=== PATIENT | female | born 1985 | race Caucasian/White ===

== ENCOUNTER → 2019-06-02 13:27 | Outpatient (CLI) | payer MEDICAID, SELFPAY ==
[2019-06-02 14:48] LABS: Basophils % 0.6 % (0.1-2.0); Eosinophils # 0.5 K/mm3 (0.0-0.4); Hematocrit 46.8 % (37.0-47.0); Hemoglobin 15.2 g/dL (12.2-16.2); Lymphocytes # 1.8 K/mm3 (0.7-4.5); Lymphocytes % 28.5 % (10-50); Mean Corpuscular HGB Conc 32.5 g/dL (31.8-35.4); Mean Corpuscular Hemoglobin 30.6 pg (27.0-31.2); Mean Corpuscular Volume 94.2 fl (81-99); Mean Platelet Volume 8.3 fl (7.4-10.4); Monocytes # 0.4 K/mm3 (0.1-1.0); Monocytes % 5.9 % (1.7-9.3); Neutrophils # 3.7 K/mm3 (1.8-7.8); Platelet Count 235 K/mm3 (142-424); Red Blood Count 4.97 M/mm3 (4.20-5.40); Red Cell Distribution Width 12.7 % (11.5-17.5); White Blood Count 6.5 K/mm3 (4.8-10.8)
[2019-06-02 15:19] LABS: Albumin Level 3.6 gm/dL (3.4-5.0); Albumin/Globulin Ratio 1.1 (1.1-1.8); Alkaline Phosphatase 52 U/L (46-116); Anion Gap 11.9 mEq/L (5-15); Aspartate Amino Transferase 12 U/L (15-37); Blood Urea Nitrogen 7 mg/dL (7-18); Calcium 8.7 mg/dL (8.5-10.1); Carbon Dioxide 27 mmol/L (21.0-32.0); Chloride 105 mmol/L (98-107); Chol/HDL Ratio 3.7 (1-3.5); Cholesterol 154 mg/dL (140-200); Creatinine,Serum 0.75 mg/dL (0.55-1.02); Estimated Glomerular Filt Rate 90 ml/min (>60); GFR (African American) 109 ML/MIN (>60); Globulin 3.2 gm/dl (1.3-3.2); Glucose 81 mg/dL (74-106); HDL Cholesterol 42 mg/dL (29-89); LDL Cholesterol 99 mg/dL (0-130); Potassium 3.9 mmoL/L (3.5-5.1); Sodium 140 mmol/L (136-145); T4 (Thyroxine) 10.7 ug/dl (4.7-13.3); Thyroid Stimulating Hormone 1.06 uIU/ml (0.358-3.740); Total Protein,Serum 6.8 gm/dL (6.4-8.2); Triglycerides 64 mg/dL (30-200); VLDL Cholesterol 13 mg/dL (0-40)
[2019-06-02 15:52] LABS: Alanine Aminotransferase 22 U/L (12-78); Bilirubin,Total 0.8 mg/dL (0.2-1.0)
[2019-06-03 07:09] LABS: Hep A Ab, IgM Negative (Negative); Hepatitis B Core Antibody IgM Negative (Negative); Hepatitis B Surface Antigen Negative (Negative)
[2019-06-04 16:29] LABS: Vitamin D 25 Hydroxy 33.7 ng/mL (30.0-100.0)
[2019-06-04 16:30] LABS: Hepatitis C Antibody <0.1 s/co ratio (0.0-0.9)
== END ==
PROVIDERS: Visit Provider Nurse Practitioner Family
DX: E04.9 Nontoxic goiter, unspecified (principal); R53.83 Other fatigue; Z11.59 Encounter for screening for other viral diseases; Z13.220 Encounter for screening for lipoid disorders
CPT/HCPCS: 80053; 80061; 80074; 82652; 84436; 84443; 85025

== ENCOUNTER → 2019-06-09 13:08 | Outpatient (CLI) | payer MEDICAID, SELFPAY ==
--- NOTE | 2019-06-09 13:10 | US_ITS ---
PROCEDURE: US THYROID CLINICAL INDICATION: enlarged thryoid COMPARISON: No exams were available for comparison FINDINGS: Right lobe: 4 x 1.3 x 1.4 cm Left lobe: 4.4 x 1.3 x 1.3 cm Isthmus: Unremarkable Additional findings: Homogeneous echogenicity. No discrete nodule IMPRESSION: Thyroid gland upper limits of normal. No nodules identified Dictated by: Isrrael Rolon MD 06/09/2019 17:46 Signed by: <Electronically signed by Isrrael Rolon MD in [facility]> 06/09/2019 17:46
== END ==
PROVIDERS: PCP Nurse Practitioner Family; Visit Provider Nurse Practitioner Family
DX: E04.9 Nontoxic goiter, unspecified (principal)
CPT/HCPCS: 76536

== ENCOUNTER → 2020-07-08 16:18 | Outpatient (CLI) | payer OTHER, SELFPAY ==
--- NOTE | 2020-07-08 16:26 | CT_ITS ---
PROCEDURE: CT ANKLE LT WO CON CLINICAL HISTORY: PREOP testing; evaluate fracture/ dislocation Fracture evaluation COMPARISON: No exams were available for comparison TECHNIQUE: Axial images obtained with sagittal and coronal reformats. All CT scans at the facility use one or more dose reduction, viz: automated exposure control, ma/kV adjustment per patient size (including targeted exams where dose is matched to indication, i.e. head), or iterative reconstruction technique. FINDINGS: There is a minimally distracted transverse fracture through the base of the medial malleolus with good alignment. There is a nondisplaced longitudinal fracture of the posterior distal tibia with intra-articular extension. This fracture fragment measures approximately 11 mm. A comminuted fracture involves the distal shaft of the fibula. The main fracture fragment is 9.7 cm cephalad to the tip of the lateral malleolus. There is a butterfly segment and main segment of the distal fracture fragment which is displaced posteriorly by approximately 7 mm with minimal distraction of the posterior butterfly fragment. The ankle mortise is slightly widened with mild prominence of the distal tibiofibular space suggesting syndesmotic injury. The talar dome has an unremarkable appearance. There is faint calcification anterior to the talus which could be due to old injury. There is some mild stranding of the soft tissues anterior to the distal tibia and medial and lateral ankle joint. IMPRESSION: Nondisplaced medial malleolar and posterior distal tibial fracture. Mildly displaced comminuted fracture of the distal shaft of the fibula with widening of the ankle mortise and the tibiofibular space distally suggesting syndesmosis injury Dictated by: Isrrael Rolon MD 07/11/2020 11:51 Isrrael Rolon MD in [facility] 07/11/2020 11:51
== END ==
PROVIDERS: PCP Physician Assistant; Visit Provider Orthopaedic Surgery
DX: S82.892A Other fracture of left lower leg, initial encounter for closed fracture (principal)
CPT/HCPCS: 73700

== ENCOUNTER → 2020-07-17 11:23 | Outpatient (CLI) | payer OTHER, SELFPAY ==
[2020-07-17 11:30] LABS: MANUAL DIFFERENTIAL MANUAL DIFFERENTIAL (MANUAL DIFF)
[2020-07-17 11:51] LABS: Basophils # 0.1 K/mm3 (0-0.2); Basophils % 0.8 % (0.1-2.0); Eosinophils # 0.5 K/mm3 (0.0-0.4); Eosinophils % 8.1 % (0.1-12.0); Hematocrit 46.3 % (37.0-47.0); Hemoglobin 14.7 g/dL (12.2-16.2); Lymphocytes # 1.5 K/mm3 (0.7-4.5); Lymphocytes % 24.3 % (10-50); Mean Corpuscular HGB Conc 31.7 g/dL (31.8-35.4); Mean Corpuscular Hemoglobin 30.5 pg (27.0-31.2); Mean Corpuscular Volume 96.3 fl (81-99); Mean Platelet Volume 7.4 fl (7.4-10.4); Monocytes # 0.3 K/mm3 (0.1-1.0); Monocytes % 5.3 % (1.7-9.3); Neutrophils # 3.8 K/mm3 (1.8-7.8); Neutrophils % 61.5 % (37.0-80.0); Platelet Count 309 K/mm3 (142-424); Red Blood Count 4.81 M/mm3 (4.20-5.40); Red Cell Distribution Width 12.3 % (11.5-17.5); White Blood Count 6.2 K/mm3 (4.8-10.8)
[2020-07-17 12:35] LABS: Chloride 105 mmol/L (98-107); Potassium 4.3 mmoL/L (3.5-5.1); Sodium 140 mmol/L (136-145)
[2020-07-17 12:37] LABS: Alanine Aminotransferase 28 U/L (12-78); Aspartate Amino Transferase 37 U/L (14-36); Bilirubin,Total 0.9 mg/dl (0.2-1.3); Blood Urea Nitrogen 15 mg/dl (7-17); Estimated Glomerular Filt Rate 83 ml/min (>60); GFR (African American) 101 ML/MIN (>60)
[2020-07-17 12:38] LABS: Albumin Level 3.9 g/dl (3.5-5.0); Albumin/Globulin Ratio 1.4 (1.1-1.8); Alkaline Phosphatase 51 U/L (38-126); Anion Gap 13.3 mEq/L (5-15); Calcium 9.5 mg/dl (8.4-10.2); Carbon Dioxide 26 mmol/L (22.0-30.0); Globulin 2.7 g/dL (1.3-3.2); Glucose 108 mg/dl (74-100); Total Protein,Serum 6.6 g/dl (6.3-8.2)
[2020-07-17 13:23] LABS: Coronavirus 19 IgG Antibody Negative (Negative); Coronavirus 19 IgM Antibody Negative (Negative)
[2020-07-17 15:16] LABS: Eosinophils % 3 % (0-3); Lymphocytes % 28 % (10-50); Monocytes % 7 % (2-9); Neutrophils % 62 % (42-76); Platelet Estimate Normal; RBC Morphology Normal; Total Cells Counted 100
== END ==
PROVIDERS: Visit Provider Orthopaedic Surgery
DX: Z01.89 Encounter for other specified special examinations (principal); S82.892A Other fracture of left lower leg, initial encounter for closed fracture
CPT/HCPCS: 36415; 80053; 85007; 85014; 85018; 85048; 85049; 86328

== ENCOUNTER 2020-07-18 07:54 | Day surgery (SDC) | payer OTHER, SELFPAY ==
[2020-07-16 11:06] VITALS: BMI 31.6
[2020-07-18] VITALS (11 sets, daily range): BP systolic 106–124; BP diastolic 54–87; PULSE 84–110; RESP 12–18; TEMP 6.1–43; O2SAT 94–98
--- NOTE | 2020-07-18 08:37 | P.PN_ITS ---
[facility] Anesthesia Checklist - Structural Data Admitted From: Home Planned Operative Procedure/s: orif l ankle Consent for Planned Operative Procedure(s) Verified: Yes - Airway Assessment C-Spine Mobility Assessed: Yes TMJ Mobility Assessed: Yes Dentition: Good Dentition - Neurological Assessment Level of Consciousness: Awake, Alert, Appropriate - Anesthesia Plan Anesthesia Risk discussed: Yes Anesthesia Plan: Verified ASA Class: II Anesthesia Type: General w/block [facility] History I have reviewed the patient's past medical history: Yes Medical History: Reports:: Anxiety Denies:: Cancer, Chronic Obstructive Pulmonary Disease (COPD), Diabetes Mellitus Type 1, Diabetes Mellitus Type 2, Gastroesophageal Reflux Disease(GERD), Internal Pacemaker, MRSA, Transient Ischemic Attacks (TIA) *Have you ever received a pneumonia vaccine?: No *Have you received a flu vaccine this season?: No Anesthesia experience/problems:: none Laterality Cases: Bilateral: Tonsillectomy Other Surgeries: Yes: Tubal Ligation. No: Pacemaker Amputation: No Fractures: Yes - *Social History Last grade of school completed: Some college Smoking Status: Current every day smoker Tobacco Type: cigarettes # Packs/Day (cigarettes): 1 Alcohol Intake: never Substance Use Type: denies use, marijuana *Occupational Status:: other Housing: house Household Members: spouse, family *Travel in the last 8 weeks: None - Psychiatric History Pschychiatric History:: Reports:: Anxiety Family Hx:: Diabetes, Thyroid Disorder
[2020-07-18 09:03] LABS: HCG Qualitative, Serum Negative (Negative)
--- NOTE | 2020-07-18 10:38 | XR_ITS ---
PROCEDURE: XR ANKLE LT 2V Referring Doctor: Coleen Ruff Patient Age:34Y CLINICAL INDICATION: ORIF ankle fracture COMPARISON: CT CT ANKLE LT WO CON from 07/08/2020 CT ankle 07/08/2020 FINDINGS: On multiple fluoroscopic spot images were obtained during the course of the ORIF procedure of the left ankle fractures Fluoro time 2 minutes 24 seconds . Oblique . Anatomic position is established at the spiral fracture of the distal fibular shaft with three screws entering anteriorly securing this anatomic relationship. Thereafter a long metallic plate applied to the distal fibular shaft. Multiple screws in place to secure such. Then the medial malleolar fracture was addressed. Initially transverse fixation element placed at the tibia fibular junction two in provide fixation to the interosseous region. Thereafter a metallic plate with curved tip was applied securing the medial malleolar fracture but a screw placed inferiorly securing the plate and medial malleolar fracture followed by multiple screws securing metallic plate.. The nondisplaced post malleolar fracture appears to be in tonic position and was noted on the final lateral images. . IMPRESSION: The images document steps of ORIF of the of left ankle fracture. Long plate provides fixation to fracture of the distal shaft the fibula. Anatomic position reestablished here. Also metallic plate and screws provide fixation to the fracture at the tip of the medial malleolus. The fracture of the posterior malleolus anatomic position. IMPRESSION: No acute findings. Dictated by: Tee Aj MD 07/20/2020 11:31 Tee Aj MD in [place] 07/20/2020 11:31
--- NOTE | 2020-07-18 11:57 | P.PN_ITS ---
[facility] Anesthesia Record Part I Intake, IV Amount: 2,500 Estimated blood loss (mL): 0 Urine output (mL): 250 Blood Pressure: 114/67 SaO2: 94 Pulse Rate: 110 Respiratory Rate: 12 Temperature: 98.4 F Patient is:: Awake, Stable Stable to PACU at:: 11:55
--- NOTE | 2020-07-18 12:05 | XR_ITS ---
PROCEDURE: XR ANKLE LT MIN 3V Referring Doctor: Coleen Ruff Patient Age:34Y CLINICAL INDICATION: s/p orif ankle fracture COMPARISON: CT CT ANKLE LT WO CON from 07/08/2020 XA XR ANKLE LT 2V from 07/18/2020 FINDINGS: Left ankle three view. Portable AP lateral oblique . The patient is undergone, ORIF of the left ankle fracture. Fibula fracture ORIF of the oblique distal fibular shaft fracture and now in anatomical position good apposition. A long metallic plate approximately 15 cm length has been applied along lateral aspect of the distal fibula-it begins at the distal shaft fibula, bridges the fracture here at the distal shaft of fibula with this plate ending ends at the base of the lateral malleolus. It is secured by multiple screws passing through the plate as well as 3 screws entering anteriorly providing fixation to the fracture Medial malleolus fracture fixation. Approximately 7 cm metallic plate applied to the medial aspect of the distal tibia including the medial malleolus but this provides fixation of the fracture transversing base of the medial malleolus. Also note 2 transverse radiolucent elements that extend across interosseous region from medial aspect of tibia to lateral aspect of fibula providing fixation to the interosseous region. Small fragment the posterior malleolus is anatomic position The dome of the talus appears intact. The ankle mortise is slightly wider medially on the AP projection. Posterior plaster splint in place. . IMPRESSION: ORIF of the of the ankle fracture with posterior plaster splint now in place Long plate provides fixation to fracture of the distal shaft the fibula. Anatomic position here but Also metallic plate and screws provide fixation to the fracture at the tip of the medial malleolus but The fracture of the posterior malleolus anatomic position. Dictated by: Tee Aj MD 07/20/2020 11:25 Tee Aj MD in [place] 07/20/2020 11:25
--- NOTE | 2020-07-18 12:13 | HMH.OPNOTE ---
Date of procedure: 07/18/20 Pre-op Diagnosis:: L ankle trimalleolar fracture-dislocation Post-op Diagnosis:: L ankle trimalleolar fracture-dislocation Procedure performed:: 1) open reduction internal fixation L ankle 2) application of amniotic graft medial L ankle surgical wound 3) posterior splint application L ankle 4) non-operative treatment of posterior malleolus fracture Surgeon:: Coleen Ruff MD Herb Digger(s):: ANDRE Booker DIRECTOR OF QUALITY IMPROVEMENT:: Francisco Rushing Anesthesia: GETA, regional (popliteal block) Estimated blood loss (mL): 25 Clinical Note:: 34-year-old female who sustained an injury to the left ankle on 07/06/2020. She was visiting family in [facility] when the injury occurred; she was wrestling with her brother when he landed on the left ankle and she felt a pop with severe pain. She was initially seen at [facility] in [place]. A fracture-dislocation of the left ankle was diagnosed and closed reduction performed, splint applied. No open wounds reported, denies numbness or tingling in the left foot or ankle. She denies the presence of any baseline medical comorbidities and takes no daily medications. She is allergic to penicillin and erythromycin base. She is a smoker. BMI 31. Her first evaluation by myself on 07/08/20 revealed significant soft tissue swelling, prohibiting safe surgical fixation at that time. She remained NWB LLE and elevated the leg frequently over the next week, and swelling was deemed acceptable to proceed with surgery at her follow-up on 07/15/20. I discussed treatment options with the patient, including both operative and non-operative, with their relative risks and benefits. My recommendation is for open reduction internal fixation of the ankle fracture, and the patient is in agreement with this plan. I discussed the risks of surgery, including but not limited to: bleeding, infection, wound healing complications, non-union, malunion, persistent pain despite surgery, post-traumatic arthritis, painful hardware, and need for further surgery in the future. I also emphasized her increased risk for adverse event or suboptimal healing/outcome given her status as a smoker, and I strongly encouraged smoking cessation. The patient was in agreement the plan for surgery, vocalized understanding of the risks of the procedure, and provided informed consent. The pre-operative plan based on XR and CT scan was plate fixation of the fibula, cannulated screws vs tension banding vs plate fixation of the medial malleolus, with syndesmotic tightrope fixation based on the nature of the injury and synesmosis widening seen on CT scan. The posterior malleolus fragment was small and will be treated non-operatively. Operative findings:: VENDOR = Anzode Fibula: -- interfragmentary fixation with lag screws x3; all 3.5mm non-locking screws -- 1/3 tubular plate, 12-hole + 7 screws, all 3.5mm; mixture of locking and non-locking Syndesmosis: -- SynchFix tightrope x2 Medial malleolus: -- small/long medial malleolus hook plate -- 4.0mm cannulated cancellous screw, 20mm long -- 3.5mm x 24mm locking screw; 3.5mm x 30mm non-locking screw *Actishield amniotic barrier membrane + Viaflow flowable placental tissue matrix = used on medial wound Operative note:: The patient was identified in preoperative holding and the L ankle signed by myself. Surgical consent was verified with the patient and all questions answered. She was then seen by anesthesia and popliteal nerve block performed in preoperative holding. The patient was then taken to the operating room and placed supine on the OR table. 900mg clindamycin were infused intravenously and general anesthesia induced. Once the patient was asleep, the splint was removed from the L ankle and soft tissues appeared amenable to fixation. Some ecchymosis remained both medially and laterally over the posterior heel, but this was out of the way of the planned incisions. N
--- NOTE | 2020-07-18 12:16 | PC.NURSE ---
1205- rad @ bedside getting post-op views
--- NOTE | 2020-07-19 11:40 | P.PN_ITS ---
[facility] Anesthesia Record Part II Discharge Time: 12:25 Destination: Surgical Day Care (OP Surgery) PACU nurse assessment reviewed?: Yes Patient Condition:: Good Anesthesia Complications:: None Swallowing reflex intact?: Yes Cyanosis?: No Blood Pressure: 108/67 Pulse Rate: 96 Temperature: 98.4 F Mental Status: Alert & Oriented Pain level:: 0 Nausea and/or vomitting:: None Intake, IV Amount: 0
[2020-07-19 11:41] VITALS: BP 108/67; PULSE 96; TEMP 36.9
== END 2020-07-18 13:15 | disposition home or self-care (01) ==
PROVIDERS: PCP Physician Assistant; Visit Provider Orthopaedic Surgery
PROC: (CPT 27822; principal; 2020-07-18 07:30)
DX: S82.852A Displaced trimalleolar fracture of left lower leg, initial encounter for closed fracture (principal); W03.XXXA Other fall on same level due to collision with another person, initial encounter; Y93.72 Activity, wrestling; Y92.019 Unspecified place in single-family (private) house as the place of occurrence of the external cause
CPT/HCPCS: 27822; C5271; 73600; 73610; 84703; 96374; C1713; C1776; J2405; Q4211

== ENCOUNTER 2020-07-20 05:46 | Emergency (ER) | payer OTHER, SELFPAY ==
[2020-07-20 05:52] VITALS: BP 113/84; PULSE 85; RESP 20; TEMP 36.5; O2SAT 97; BMI 31.6
[2020-07-20 06:19] VITALS: BP 93/51; PULSE 73; RESP 18; O2SAT 100
--- NOTE | 2020-07-20 06:20 | HMH.EDLOEX ---
ED Disposition Clinical Impression: Post-op pain Fracture of ankle Qualifiers: Encounter type: subsequent encounter Fracture type: closed Laterality: left Fracture healing: with routine healing Qualified Code(s): S82.892D - Other fracture of left lower leg, subsequent encounter for closed fracture with routine healing Disposition: Home, Self-Care Condition on Discharge: Good Instructions: Ankle Fracture Additional Instructions: use meds and call ortho wednesday am, elevated andno wt bearing Prescriptions: Hydromorphone HCl [Dilaudid 2mg tablet] 2 mg PO Q6H #10 tab Prescription Printed Referrals: Lynn Kapadia PA [Primary Care Provider] - - Critical Care Critical Care Time: No Attestation: On 07/20/20, the high probability of a clinically significant, sudden or life threatening deterioration of the following system(s) required my full and direct attention, intervention and personal management. The time I documented below is in addition to time spent performing reported procedures but includes the following listed in this critical care notation. Medical Decision Making - Medical Records Medical records reviewed: Yes: I reviewed the patient's medical records. - Steve Inquiry Pt receiving controlled substance: No Vital Signs: 07/20/20 05:52 07/20/20 06:19 Temperature 97.7 F Temperature Source Oral Pulse Rate [Right Brachial] 85 73 Respiratory Rate 20 18 Blood Pressure [Right Arm] 113/84 93/51 L Blood Pressure Mean [Right Arm] 93 65 Blood Pressure Source [Right Arm] Automatic Cuff Blood Pressure Position [Right Arm] Sitting 02 Sat by Pulse Oximetry 97 100 Oxygen Delivery Method Room Air Lower Extremity Injury HPI - General Chief Complaint: Extremity Injury, Lower Stated Complaint: Pain in rt leg;surgery on 07/18 Time Seen by Provider: 07/20/20 06:20 Mode of Arrival: Wheelchair Source of Information: Patient, Spouse, Medical Record Limitations: Physical Limitations Description of Symptoms (Recalled from ER Triage Doc. by RN): pt states she had tibia/ fibia repair to left leg on by dr gupta and has been having extreme pain since 0800 on 07/19/20, pt has follow up appt 07/26/[address] gupta - History of Present Illness HPI Narrative: recent orif of lt ankle - pt with pain - has talked with ortho and told to inc pain meds - still with pain - no wt bearing or fever MD complaint: ankle injury Onset (ago): day(s) Injury: Left: ankle Type of Injury: other (recent surg ) Place: home Severity: moderate Associated symptoms: unable to bear weight Other symptoms: none - Related Data Previous Rx's Medication Instructions Recorded oxycodone-acetaminophen 5 mg-325 1 tab PO Q8H PRN #20 tab 07/15/20 mg tablet Hydromorphone HCl [Dilaudid 2mg 2 mg PO Q6H #10 tab 07/20/20 tablet] Allergies Allergy/AdvReac Type Severity Reaction Status Date / Time erythromycin base Allergy Verified 07/16/20 11:00 Penicillins Allergy Verified 07/16/20 11:00 [facility] History - Hepatitis A Screen Drug use history?: No High risk sexual behaviors?: No History of sexually transmitted infection?: No Currently employed?: No Childcare worker?: No Do you have indoor plumbing?: Yes Do you have electricity?: Yes Attestation statement:: This patient has been screened for Hepatitis A risk factors. I have reviewed the patient's past medical history: Yes Medical History: Reports:: Anxiety Denies:: Cancer, Chronic Obstructive Pulmonary Disease (COPD), Diabetes Mellitus Type 1, Diabetes Mellitus Type 2, Gastroesophageal Reflux Disease(GERD), Internal Pacemaker, MRSA, Seizures, Transient Ischemic Attacks (TIA) Other Medical History: Denies: Blood Transfusion Reaction Laterality Cases: Bilateral: Tonsillectomy Other Surgeries: Yes: Tubal Ligation. No: Pacemaker Amputation: No Fractures: Yes - Social History Smoking Status: Current every day smoker Tobacco Type: cigarettes # Pack
[2020-07-20 06:48] VITALS: BP 112/83; PULSE 75; RESP 16; TEMP 36.6; O2SAT 99
== END 2020-07-20 06:52 | disposition home or self-care (01) ==
PROVIDERS: Emergency Provider Emergency Medicine; PCP Physician Assistant
DX: G89.18 Other acute postprocedural pain (principal); S82.892D Other fracture of left lower leg, subsequent encounter for closed fracture with routine healing; F41.9 Anxiety disorder, unspecified; F17.210 Nicotine dependence, cigarettes, uncomplicated; F12.10 Cannabis abuse, uncomplicated
CPT/HCPCS: 96372; 99282

== ENCOUNTER → 2020-07-26 13:04 | Outpatient (CLI) | payer OTHER, SELFPAY ==
--- NOTE | 2020-07-26 13:10 | XR_ITS ---
PROCEDURE: XR ANKLE LT MIN 3V CLINICAL INDICATION: s/p left ankle FX; out of splint COMPARISON: CT CT ANKLE LT WO CON from 07/08/2020 CR XR ANKLE LT MIN 3V from 07/18/2020 FINDINGS: Posterior splint is in place. Status post ORIF distal fibula and distal tibia with bony hardware present unchanged. Fracture line of the distal shaft of the fibula is once again noted. Nondisplaced posterior distal tibial fracture with good alignment. Good alignment of the medial malleolar fracture. That fracture line is barely visible. IMPRESSION: Good alignment status post ORIF distal tib fib fracture Dictated by: Isrrael Rolon MD 07/26/2020 17:05 Isrrael Rolon MD in [place] 07/26/2020 17:05
== END ==
PROVIDERS: PCP Physician Assistant; Visit Provider Orthopaedic Surgery
DX: S82.899A Other fracture of unspecified lower leg, initial encounter for closed fracture (principal)
CPT/HCPCS: 73610

== ENCOUNTER → 2020-08-02 11:23 | Outpatient (CLI) | payer OTHER, SELFPAY ==
--- NOTE | 2020-08-02 11:27 | XR_ITS ---
PROCEDURE: XR ANKLE LT MIN 3V CLINICAL INDICATION: pt fell putting weight on ankle Follow-up ORIF COMPARISON: CR XR ANKLE LT MIN 3V from 07/18/2020 CR XR ANKLE LT MIN 3V from 07/26/2020 FINDINGS: Fibular bone plate and distal medial tibial bone plate with cortical screws and translucent fixator remain in place. Good alignment. No evidence of hardware malfunction. Nondisplaced distal fibular fracture once again noted unchanged. Posterior splint is present. No acute fracture or dislocation apparent. IMPRESSION: Good alignment, no change status post ORIF distal tib fib fracture Dictated by: Isrrael Rolon MD 08/02/2020 15:41 Isrrael Rolon MD in [place] 08/02/2020 15:41
== END ==
PROVIDERS: PCP Physician Assistant; Visit Provider Orthopaedic Surgery
DX: S82.899A Other fracture of unspecified lower leg, initial encounter for closed fracture (principal)
CPT/HCPCS: 73610

== ENCOUNTER → 2020-08-12 15:20 | Outpatient (CLI) | payer OTHER, SELFPAY ==
--- NOTE | 2020-08-12 15:24 | XR_ITS ---
PROCEDURE: XR ANKLE LT MIN 3V CLINICAL INDICATION: NWB: out of splint Follow-up surgery COMPARISON: CR XR ANKLE LT MIN 3V from 07/18/2020 CR XR ANKLE LT MIN 3V from 07/26/2020 CR XR ANKLE LT MIN 3V from 08/02/2020 FINDINGS: There is good alignment status post ORIF distal tib fib fracture with lateral fibular bone plate and medial tibial bone plate with translucent fixator at the distal tib fib and 2 cortical screws within the distal medial malleolar region. There is good alignment of the fracture fragments. The splint has been removed. IMPRESSION: Good alignment status post ORIF distal tib fib Dictated by: Isrrael Rolon MD 08/12/2020 15:51 Isrrael Rolon MD in [place] 08/12/2020 15:51
== END ==
PROVIDERS: PCP Physician Assistant; Visit Provider Orthopaedic Surgery
DX: S82.891A Other fracture of right lower leg, initial encounter for closed fracture (principal)
CPT/HCPCS: 73610

== ENCOUNTER 2020-08-12 16:27 | Outpatient (RCR) | payer OTHER, SELFPAY | END 2020-08-12 17:20 | disposition home or self-care (01) | LOC: PT 16:27 | PROVIDERS: Visit Provider Orthopaedic Surgery | DX: S82.892D Other fracture of left lower leg, subsequent encounter for closed fracture with routine healing (principal) | CPT/HCPCS: 97760 ==

== ENCOUNTER → 2020-09-02 12:58 | Outpatient (CLI) | payer OTHER, SELFPAY ==
--- NOTE | 2020-09-02 13:02 | XR_ITS ---
PROCEDURE: XR ANKLE LT MIN 3V CLINICAL INDICATION: s/p ORIF L ankle trimalleolar fracture-dislocation Follow-up surgery COMPARISON: CR XR ANKLE LT MIN 3V from 07/18/2020 CR XR ANKLE LT MIN 3V from 07/26/2020 CR XR ANKLE LT MIN 3V from 08/02/2020 CR XR ANKLE LT MIN 3V from 08/12/2020 FINDINGS: Status post ORIF left tib fib. Lateral fibular bone plate and medial tibial bone plate once again noted with translucent fixator. The mortise is preserved. IMPRESSION: Good alignment status post ORIF left tib fib Dictated by: Isrrael Rolon MD 09/02/2020 16:13 Isrrael Rolon MD in [place] 09/02/2020 16:13
== END ==
PROVIDERS: PCP Physician Assistant; Visit Provider Orthopaedic Surgery
DX: S82.899A Other fracture of unspecified lower leg, initial encounter for closed fracture (principal)
CPT/HCPCS: 73610

== ENCOUNTER → 2020-09-23 14:20 | Outpatient (CLI) | payer OTHER, SELFPAY ==
--- NOTE | 2020-09-23 14:24 | XR_ITS ---
PROCEDURE: XR ANKLE LT MIN 3V CLINICAL INDICATION: s/p ORIF L ankle trimalleolar fracture-dislocation Follow-up surgery COMPARISON: CT CT ANKLE LT WO CON from 07/08/2020 CR XR ANKLE LT MIN 3V from 07/26/2020 CR XR ANKLE LT MIN 3V from 08/02/2020 CR XR ANKLE LT MIN 3V from 08/12/2020 CR XR ANKLE LT MIN 3V from 09/02/2020 FINDINGS: Status post ORIF with medial tibial bone plate and lateral fibular bone plate as previously described overall not significantly changed. Fracture lines are barely visible IMPRESSION: Good alignment status post tib fib fractures Dictated by: Isrrael Rolon MD 09/23/2020 14:44 Isrrael Rolon MD in [place] 09/23/2020 14:44
== END ==
PROVIDERS: PCP Emergency Medicine; Visit Provider Orthopaedic Surgery
DX: S82.892A Other fracture of left lower leg, initial encounter for closed fracture (principal)
CPT/HCPCS: 73610

== ENCOUNTER → 2020-10-28 08:07 | Outpatient (CLI) | payer OTHER, SELFPAY ==
--- NOTE | 2020-10-28 08:14 | XR_ITS ---
PROCEDURE: XR ANKLE WT BEARING LT MIN 3V CLINICAL INDICATION: LT ankle FU Follow-up fracture/ORIF COMPARISON: CR XR ANKLE LT MIN 3V from 08/02/2020 CR XR ANKLE LT MIN 3V from 08/12/2020 CR XR ANKLE LT MIN 3V from 09/02/2020 CR XR ANKLE LT MIN 3V from 09/23/2020 FINDINGS: Good alignment status post ORIF distal fibular fracture. Fracture line is barely visible. Medial tibial bone plate with cortical screws and prior syndesmotic repair noted with good alignment. Ankle mortise is preserved and the talar dome has an unremarkable appearance. IMPRESSION: Good alignment status post ORIF distal tib fib Dictated by: Isrrael Rolon MD 10/28/2020 15:00 Isrrael Rolon MD in [facility] 10/28/2020 15:00
== END ==
PROVIDERS: PCP Physician Assistant; Visit Provider Orthopaedic Surgery
DX: S82.899A Other fracture of unspecified lower leg, initial encounter for closed fracture (principal)
CPT/HCPCS: 73610

== ENCOUNTER 2020-10-30 14:00 | Outpatient (RCR) | payer OTHER, SELFPAY ==
--- NOTE | 2020-09-18 11:19 | HMH.PTOPEV ---
PT Outpatient Evaluation Rehab PT Outpatient Evaluation Start: 09/18/20 10:28 Freq: Status: Active Protocol: Document 09/18/20 11:04 LON (Rec: 09/18/20 11:19 LON [id number]) Electronically Signed By Ozzie Patel, PT 09/18/20 11:04 Outpatient Therapy Subjective History Subjective History Patient is a 34 year old female presenting to outpatient PT with reports of L foot/ankle pain S/P L ORIF for tib/fib fracture/ dislocation. Initial injury . Sx date 07/18 (8w 6d S/P) . Initial injury occured while she was wrestling with her brother per patient report. Patient has progressed to WBAT for the past 2 weeks. No other comorbidities to report. Chief Complaint Pain,Stiff,Swelling, Paresthesia,Weakness Symptom Type Ache,Numbness,Tingling Symptoms Relieved By Rest/Positioning,Ice,OTC Meds, Elevation Symptoms Aggravated By Standing,Physical Activity, Walking Prior Functional Limitations None Current Functional Limitations Housework,Standing,Squatting, Recreation Activity,Walking, Stairs,Balance Symptom Description Intermittent Level of pain today (0-10) 0 Pain scale - at its best (0-10) 0 Pain scale - at its worst (0-10) 5 Ankle/Foot Eval Gait Observation General Gait Pattern Observation Antalgic Gait,Decrease Weight Bear (L) Assistive Device Ambulation Assistive Device Axillary Crutches Palpation Tenderness left Ankle/Foot Palpation Findings Tenderness Ankle/Foot Palpation Overall Comment Surgical incisions 3/4 ROM Ankle/Foot Dorsiflexion w/Knee Extended 3 Active Range Motion (degrees) Ankle/Foot Dorsiflexion w/Knee Extended 8 Passive Range (degrees) Ankle/Foot Plantar Flexion Active Range 38 of Motion (degrees) Ankle/Foot Plantar Flexion Passive Range 50 of Motion (degrees) Ankle/Foot Eversion Active Range of 9 Motion (degrees) Ankle/Foot Eversion Passive Range of 18 Motion (degrees) Ankle/Foot Inversion Active Range of 11 Motion (degrees) Ankle/Foot Inversion Passive Range of 22 Motion (degrees) Great Toe ROM Reason Not Measured Within Functional Limits Accessory Movements Ankle Accessory Movements that Elicit Talus Dorsal Jackson,Talus Symptoms Ventral
== END 2020-10-30 14:05 | disposition home or self-care (01) ==
LOC: PT 14:00
PROVIDERS: PCP Physician Assistant; Visit Provider Orthopaedic Surgery
DX: S82.892D Other fracture of left lower leg, subsequent encounter for closed fracture with routine healing (principal)
CPT/HCPCS: 97010; 97014; 97016; 97110; 97112; 97116; 97140; 97163; 97164; G0283

== ENCOUNTER → 2021-06-18 13:15 | Outpatient (CLI) | payer OTHER, SELFPAY ==
--- NOTE | 2021-06-18 13:20 | XR_ITS ---
PROCEDURE: XR LUMBAR SPINE MIN 4V CLINICAL INDICATION: back pain COMPARISON: No exams were available for comparison FINDINGS: Alignment: Normal alignment. Bony structures: No fracture or dislocation. No lytic or blastic change. Disc spaces: No significant degenerative change. The disc spaces are preserved. Additional findings: IMPRESSION: Negative lumbar spine Dictated by: Isrrael Rolon MD 06/18/2021 15:45 Isrrael Rolon MD in [facility] 06/18/2021 15:45
== END ==
PROVIDERS: PCP Physician Assistant; Visit Provider Physician Assistant
DX: M54.9 Dorsalgia, unspecified (principal); M54.5 Low back pain
CPT/HCPCS: 72110

== ENCOUNTER → 2021-07-01 09:06 | Outpatient (CLI) | payer OTHER, SELFPAY ==
--- NOTE | 2021-07-01 09:06 | NM_ITS ---
PROCEDURE: NM BONE SCAN LIMITED AREA CLINICAL INDICATION: left leg pain s/p ORIF Evaluate for infection COMPARISON: XA XR ANKLE LT 2V from 07/18/2020 CR XR ANKLE LT MIN 3V from 07/18/2020 CR XR ANKLE LT MIN 3V from 07/26/2020 CR XR ANKLE LT MIN 3V from 07/01/2021 FINDINGS: Dose: 26.1 mCi technetium MDP Three-phase imaging is performed. Blood flow images show only slight increased activity to the left ankle compared to the right side. Blood pool images show slight increased activity to the medial aspect of the left ankle at the medial malleolar region. Delayed static images show increased activity along the distal 1/3 of the fibula corresponding to the area of the bone plate. There is overall generalized slight increased activity to the distal tibia and fibula talus and navicular region. IMPRESSION: There is slight increased activity to the left ankle on all 3 phases. This is not as intense as 1 would expect for osteomyelitis. Findings may be related to postoperative changes. Cannot exclude a low-grade infection. Please correlate with clinical parameters. Complex regional pain syndrome would be included in the differential diagnosis. Dictated by: Isrrael Rolon MD 07/03/2021 09:47 Isrrael Rolon MD in [facility] 07/03/2021 09:47
--- NOTE | 2021-07-01 12:59 | XR_ITS ---
PROCEDURE: XR ANKLE LT MIN 3V CLINICAL INDICATION: LT ANKLE PAIN COMPARISON: CR XR ANKLE LT MIN 3V from 08/12/2020 CR XR ANKLE LT MIN 3V from 09/02/2020 CR XR ANKLE LT MIN 3V from 09/23/2020 CR XR ANKLE WT BEARING LT MIN 3V from 10/28/2020 NM NM BONE SCAN LIMITED AREA from 07/01/2021 FINDINGS: Status post ORIF distal tib fib. No change in bone plates and screws with good alignment. The ankle mortise is preserved. No lytic or blastic change. The joint spaces are well-preserved. No significant degenerative/arthritic changes. No erosive changes evident. Other findings:None. IMPRESSION: No change status post ORIF distal tib fib Dictated by: Isrrael Rolon MD 07/01/2021 13:50 Isrrael Rolon MD in [facility] 07/01/2021 13:50
== END ==
PROVIDERS: PCP Physician Assistant; Visit Provider Physician Assistant
DX: M79.605 Pain in left leg (principal)
CPT/HCPCS: 73610; 78300; A9503

== ENCOUNTER → 2021-07-18 12:54 | Outpatient (CLI) | payer OTHER, SELFPAY ==
[2021-07-19 05:09] LABS: Hepatitis B Surf Ab Quant 129.5 mIU/mL (Immunity>9.9)
[2021-07-19 08:43] LABS: Rubella Antibodies, IgG 1.43 index (Immune >0.99)
[2021-07-19 16:10] LABS: Measles Antibodies, IgG 69.5 AU/mL (Immune >16.4); Mumps Abs, IgG 12.5 AU/mL (Immune >10.9); Varicella Zoster IgG 1533 index (Immune >165)
== END ==
PROVIDERS: Visit Provider Physician Assistant
DX: Z01.84 Encounter for antibody response examination (principal)
CPT/HCPCS: 36415; 86706; 86735; 86762; 86765; 86787

== ENCOUNTER → 2021-08-15 10:18 | Outpatient (CLI) | payer OTHER, SELFPAY ==
[2021-08-15 10:29] LABS: Basophils # 0.1 K/mm3 (0-0.2); Basophils % 1.2 % (0.1-2.0); Eosinophils # 0.8 K/mm3 (0.0-0.4); Eosinophils % 8.4 % (0.1-12.0); Hematocrit 48.3 % (37.0-47.0); Hemoglobin 15.8 g/dL (12.2-16.2); Lymphocytes # 2.6 K/mm3 (0.7-4.5); Lymphocytes % 28.4 % (10-50); Mean Corpuscular HGB Conc 32.8 g/dL (31.8-35.4); Mean Corpuscular Hemoglobin 30.6 pg (27.0-31.2); Mean Corpuscular Volume 93.3 fl (81-99); Mean Platelet Volume 7.7 fl (7.4-10.4); Monocytes # 0.4 K/mm3 (0.1-1.0); Monocytes % 4.7 % (1.7-9.3); Neutrophils # 5.2 K/mm3 (1.8-7.8); Neutrophils % 57.3 % (37.0-80.0); Platelet Count 287 K/mm3 (142-424); Red Blood Count 5.18 M/mm3 (4.20-5.40); Red Cell Distribution Width 13.3 % (11.5-17.5); White Blood Count 9.1 K/mm3 (4.8-10.8)
[2021-08-15 11:09] LABS: Alanine Aminotransferase 25 U/L (12-78); Albumin Level 4.1 g/dl (3.5-5.0); Albumin/Globulin Ratio 1.4 (1.1-1.8); Alkaline Phosphatase 67 U/L (38-126); Aspartate Amino Transferase 28 U/L (14-36); Bilirubin,Total 0.9 mg/dl (0.2-1.3); Blood Urea Nitrogen 10 mg/dl (7-17); Calcium 9.2 mg/dl (8.4-10.2); Carbon Dioxide 23 mmol/L (22.0-30.0); Chloride 108 mmol/L (98-107); Estimated Glomerular Filt Rate 96 ml/min (>60); GFR (African American) 117 ML/MIN (>60); Globulin 2.9 g/dL (1.3-3.2); Glucose 110 mg/dl (74-100); Sodium 141 mmol/L (136-145)
[2021-08-15 11:14] LABS: C-Reactive Protein 12.2 mg/L (0-4)
[2021-08-15 11:55] LABS: Erythrocyte Sedimentation Rate 8 mm/hr (0-20)
== END ==
PROVIDERS: Visit Provider Orthopaedic Surgery
DX: G89.18 Other acute postprocedural pain (principal)
CPT/HCPCS: 36415; 80053; 85025; 85651; 86140

== ENCOUNTER → 2021-09-15 15:01 | Outpatient (POV) | payer OTHER, SELFPAY ==
[2021-09-15 15:12] VITALS: BP 146/104; PULSE 119; RESP 20; TEMP 36.3; O2SAT 94; BMI 33.3
--- NOTE | 2021-09-15 15:32 | HMH.PMCON ---
Assessment and Plan (1) Fracture of ankle Status: Acute Qualifiers: Encounter type: subsequent encounter Fracture type: closed Laterality: left Fracture healing: with routine healing Qualified Code(s): S82.892D - Other fracture of left lower leg, subsequent encounter for closed fracture with routine healing Category: Medical Code(s): S82.899A - Other fracture of unspecified lower leg, initial encounter for closed fracture (2) Post-op pain Status: Acute Category: Medical Code(s): G89.18 - Other acute postprocedural pain (3) CRPS (complex regional pain syndrome) Status: Acute Category: Medical - Assessment and plan all Dx Assessment and Plan for all problems:: We will schedule the patient for lumbar sympathetic nerve block. Patient is not on any anticoagulants. Risks and benefits of this procedure has been discussed with the patient. HPI - Data of Consult Patient: new to practice Consult date: 09/15/21 Requesting Physician: Nannette Quiñones APRN - Consult Narrative Reason for consult: leg pain History of present illness: Patient is a pleasant 35-year-old female who is here today as a new patient. Patient has been referred by Dr. Manolo Duron for evaluation and treatment of possible CRPS. In July 2020, patient's broke her left leg and ankle which resulted to an open reduction internal fixation of the left bimalleolar ankle fracture and sent this mood a repair by Dr. Ngo. Patient says that since his surgery, she has been having left leg pain, numbness, paresthesia, left leg coldness, and color changes. Patient has tried oral medications that helped with the discomfort a little bit, but she feels like she has been taking too much diclofenac and tylenol per day. Patient is scheduled to go to PT in the next few weeks and she is also scheduled to get an EMG done on 10/09/21. She rates her pain today as 5/10. Patient also says that during her left ankle surgery in Jul 2020, they had to do an emergent epidural injection, because she woke up. Patient says that she has been having localized pain on her low back since then. Patient is currently not on any scheduled medications. CC: Nannette Quiñones APRN [facility] History I have reviewed the patient's past medical history: Yes Medical History: Reports:: Anxiety, Hypertension Denies:: Cancer, Chronic Obstructive Pulmonary Disease (COPD), Diabetes Mellitus Type 1, Diabetes Mellitus Type 2, Gastroesophageal Reflux Disease(GERD), Internal Pacemaker, MRSA, Seizures, Transient Ischemic Attacks (TIA) *Have you ever received a pneumonia vaccine?: No *Have you received a flu vaccine this season?: Yes Other Medical History: Denies: Blood Transfusion Reaction Laterality Cases: Left: Other, Bilateral: Tonsillectomy Other Surgeries: Yes: Tubal Ligation, Other (LEFT ankle). No: Pacemaker Amputation: No Fractures: Yes - *Social History Smoking Status: Current every day smoker Tobacco Type: cigarettes # Packs/Day (cigarettes): 1 Alcohol Intake: never Substance Use Type: marijuana *Occupational Status:: other Housing: house Household Members: other *Travel in the last 8 weeks: None - Psychiatric History Pschychiatric History:: Reports:: Anxiety Family Hx:: Diabetes, Thyroid Disorder Review of Systems - Review of Systems Review of systems:: unable to obtain Review of Systems General: No recent weight changes, no fever, no sleep disturbances Respiratory: No cough, no shortness of air, no recurring pulmonary infections Cardiovascular/peripheral vascular: No chest pain, no palpitations, no edema, no shortness of breath Gastrointestinal: No new onset incontinence, normal bowel movements reported Genitourinary: No new onset incontinence Musculoskeletal: Left leg pain and ankle Psychiatric: [Normal mood/affect] Neurological: [Denies weakness in extremities], [denies balance issues] Meds Home Medications Medication Instructions Recorded
== END ==
PROVIDERS: Visit Provider Clinical Nurse Specialist Family Health
DX: S82.892D Other fracture of left lower leg, subsequent encounter for closed fracture with routine healing (principal); G89.18 Other acute postprocedural pain
CPT/HCPCS: 99202; G0463

== ENCOUNTER 2021-09-26 14:13 | Day surgery (SDC) | payer OTHER, SELFPAY ==
[2021-09-26 14:17] VITALS: BP 124/84; PULSE 108; RESP 20; TEMP 36.4; O2SAT 94; BMI 33.3
[2021-09-26 14:32] VITALS: BP 117/79; PULSE 91; RESP 18; O2SAT 95
[2021-09-26 14:34] VITALS: BP 116/89; PULSE 88; RESP 18; O2SAT 96
--- NOTE | 2021-09-26 14:40 | HMH.PMPROC ---
- Procedure Date: 09/26/21 Time: 14:40 Anesthesiologist:: Ced Patterson MD Complications:: None Pre-procedure Diagnosis:: Complex regional pain syndrome type one of the left lower extremity Post-procedure Diagnosis:: Same Indications for Procedure:: Patient is a pleasant 35-year-old white female who we are treating for complex regional pain syndrome type I of left lower extremity. She has had previous ankle surgery over a year ago. She now has significant pain, swelling and other autonomic symptoms. She has done physical therapy. We will do a lumbar epidural sympathetic block today to see if this helps with her pain symptoms. Procedure Details:: Informed consent was obtained and the risk and benefits of the procedure was explained to the patient. The patient was taken to the procedure room. The patient was placed prone on the procedure table. The patient was prepped and draped in sterile fashion. C-arm fluoroscopy was used to view the lumbar spine. Skin and subcutaneous tissues were anesthetized using lidocaine. I placed an 18-gauge epidural needle and advanced into the L5-S1 interspace using fluoroscopic guidance and [id number] to air. After confirmation of needle placement in the epidural space with dye I injected 5 mL of lidocaine 1.5% with Depo-Medrol 80 mg. Patient tolerated the procedure well with no complications. Plan and Disposition:: We will follow-up with her and reevaluate her symptoms. If she does not get significant benefit from the injections she may be a candidate for spinal cord stimulation.
[2021-09-26 14:47] VITALS: BP 133/88; PULSE 92; RESP 18; TEMP 36.4; O2SAT 97
== END 2021-09-26 14:50 | disposition home or self-care (01) ==
LOC: SC.PAINP 14:14
PROVIDERS: PCP Physician Assistant; Visit Provider Anesthesiology
DX: G90.522 Complex regional pain syndrome I of left lower limb (principal); I10 Essential (primary) hypertension; F41.9 Anxiety disorder, unspecified; Z72.0 Tobacco use; Z88.0 Allergy status to penicillin; Z88.1 Allergy status to other antibiotic agents
CPT/HCPCS: 62323; J1040; Q9966

== ENCOUNTER → 2022-05-26 18:31 | Outpatient (CLI) | payer OTHER, SELFPAY ==
[2022-05-26 14:50] LABS: Adenovirus,PCR Not Detected (NotDetected); Bordetella Pertussis Not Detected (NotDetected); Chlamydophila Pneumoniae, PCR Not Detected (NotDetected); Coronavirus 19, PCR Not Detected (NotDetected); Coronavirus 229E Not Detected (NotDetected); Coronavirus NL63 Not Detected (NotDetected); Coronavirus OC43 Not Detected (NotDetected); Coronovirus HKU1,PCR Not Detected (NotDetected); Human Metapneumovirus Not Detected (NotDetected); Influenza A, PCR Not Detected (NotDetected); Influenza AH1, 2009 Not Detected (NotDetected); Influenza AH1, PCR Not Detected (NotDetected); Influenza AH3,PCR Not Detected (NotDetected); Influenza B, PCR Not Detected (NotDetected); Mycoplasma Pneumoniae, PCR Not Detected (NotDetected); Parainfluenza 1, PCR Not Detected (NotDetected); Parainfluenza 2, PCR Not Detected (NotDetected); Parainfluenza 3, PCR Not Detected (NotDetected); Parainfluenza 4, PCR Not Detected (NotDetected); Respiratory Syncytial Virus Not Detected (NotDetected); Rhinovirus/Enterovirus Not Detected (NotDetected)
== END ==
PROVIDERS: PCP Nurse Practitioner Family; Visit Provider Nurse Practitioner Family
DX: Z20.822 Contact with and (suspected) exposure to COVID-19 (principal); R09.89 Other specified symptoms and signs involving the circulatory and respiratory systems; R05.9 Cough, unspecified
CPT/HCPCS: 87581; 87632; 87798; C9803; U0003; U0005

== ENCOUNTER → 2022-08-24 10:32 | Outpatient (CLI) | payer OTHER, SELFPAY ==
--- NOTE | 2022-08-24 10:32 | MM_ITS ---
PROCEDURE INFORMATION: Exam: MG Bilateral Screening 3D Mammography Exam date and time: 08/24/2022 10:27 AM Age: 36 years old Clinical indication: Screening mammogram TECHNIQUE: Imaging protocol: Bilateral Screening tomosynthesis and 2D mammography including computer-aided detection (CAD) when performed. COMPARISON: No relevant prior studies available. FINDINGS: MAMMOGRAPHY: Breast composition: There are scattered areas of fibroglandular density. Mass: None. Architectural distortion: No new or suspicious architectural distortion. Calcifications: No new or suspicious calcifications are present Asymmetric density: No new or suspicious asymmetric density is present Skin thickening: None. Axillary adenopathy: None. IMPRESSION: No mammographic evidence of malignancy. Recommend annual screening mammography unless otherwise clinically indicated. ASSESSMENT: BI-RADS category 1: Negative
== END ==
PROVIDERS: PCP Physician Assistant; Visit Provider Physician Assistant
DX: Z12.31 Encounter for screening mammogram for malignant neoplasm of breast (principal)
CPT/HCPCS: 77063; 77067

== ENCOUNTER → 2022-09-22 15:19 | Outpatient (CLI) | payer OTHER, SELFPAY ==
--- NOTE | 2022-09-22 15:23 | XR_ITS ---
FINAL REPORT CLINICAL HISTORY: wrist pain for several months, possible carpal tunnel syndrome. FINDINGS: RIGHT WRIST Three views demonstrate no acute fracture or dislocation. The visualized joint spaces are normally aligned. The soft tissues are unremarkable. IMPRESSION: No acute bony abnormality. Reviewed, Interpreted and Dictated by Micheal Bill III, MD Transcribed by Linda Krishna Authenticated and [facility]
== END ==
PROVIDERS: PCP Physician Assistant; Visit Provider Orthopaedic Surgery
DX: R20.0 Anesthesia of skin (principal); R20.2 Paresthesia of skin
CPT/HCPCS: 73110

== ENCOUNTER 2022-09-23 07:58 | Outpatient (RCR) | payer OTHER, SELFPAY | END 2022-09-23 07:59 | disposition home or self-care (01) | LOC: OT 07:58 | PROVIDERS: PCP Physician Assistant; Visit Provider Physician Assistant | DX: R20.0 Anesthesia of skin (principal); R20.2 Paresthesia of skin | CPT/HCPCS: 97165 ==

== ENCOUNTER 2023-04-23 09:19 | Emergency (ER) | payer OTHER, SELFPAY ==
[2023-04-23 09:31] VITALS: BP 124/71; BP 126/86; PULSE 85; PULSE 87; RESP 20; TEMP 36.9; O2SAT 94; O2SAT 98; BMI 38.2
--- NOTE | 2023-04-23 09:39 | HMH.EDABDPAI ---
Discharge Plan Disposition Patient Disposition: Home, Self-Care Prescriptions Prescriptions: New ondansetron 4 mg tablet,disintegrating 4 mg PO Q6H PRN (Reason: nausea and vomiting) Qty: 14 0RF omeprazole 40 mg capsule,delayed release(DR/EC) 40 mg PO DAILY 28 Days Qty: 28 0RF Referrals Follow up/Referrals: Lynn Kapadia PA [Primary Care Provider] - See instructions Clinical Impressions Clinical Impression: Acute epigastric pain Instructions Patient Instructions: DI for Acute Abdominal Pain Discharge ED Provider: Austyn Kan Abdominal Pain HPI General Chief Complaint: Abdominal Pain Stated Complaint: severe stomach pain Time Seen by Provider: 04/23/23 09:37 Mode of Arrival: Ambulatory Source of Information: Patient Limitations: No Limitations Description of Symptoms (Recalled from ER Triage Doc. by RN): pt to ed c/o epigastric pain that came on suddenly wednesday morning. pt states yesterday she started vomiting when she eats. pt denies diarrhea. pt denies urinary symptoms. History of Present Illness HPI narrative: 37-year-old white female seen with epigastric pain that actually began yesterday morning. She ate burger prior to going to work it seemed to ease it off during the day a bit but last night about 1230 it began again and she has been vomiting until she can vomit no more most the night. She notes that the pain seems to feel better if she slightly leans forward. She has allergies to erythromycin and penicillin and is status post tonsillectomy and tubal ligation. Related Data Previous Rx's Medication Instructions Recorded omeprazole 40 mg capsule,delayed 40 mg PO DAILY 4 weeks #28 caps 04/23/23 release ondansetron 4 mg disintegrating 4 mg PO Q6H PRN nausea and 04/23/23 tablet vomiting #14 tabs Allergies Allergy/AdvReac Type Severity Reaction Status Date / Time erythromycin base Allergy Verified 11/25/22 11:07 Penicillins Allergy Verified 11/25/22 11:07 [facility] Disclaimer: The information contained in this section may have been updated after the patient was seen, as this information can be updated by other users. Medical History Abnormal uterine bleeding Surgical History History of ankle surgery History of surgery on lower extremity Hx of tonsillectomy Hx of tubal ligation Family History Other Diabetes Social History Smoking Status: Current every day smoker tobacco type: cigarettes packs per day: 1 alcohol intake: never substance use type: denies use current occupational status: other Travel in the last 8 weeks: None household members: other housing: house number of children: 4 current occupational exposures/hazards: No caffeine: Yes ROS Obtained: Yes Systems reviewed as appropriate & no additional complaints except as documented Physical Exam General General appearance: alert and in distress Head Head exam: atraumatic and normocephalic Eye Eye exam: Present normal appearance and PERRL Neck Neck exam: Present normal inspection and full ROM Respiratory Respiratory exam: Present normal lung sounds bilaterally; Absent respiratory distress Cardiovascular Cardiovascular exam: Present regular rate and normal rhythm Abdominal Exam Abdominal exam: Present soft and tenderness (Epigastric) Neurological Exam Neurological exam: Present alert, oriented X3 and CN II-XII intact Medical Decision Making Medical Records MR Comment: 37-year-old white female presents with epigastric pain of 2 days duration accompanied by nausea and vomiting. The patient currently takes no medication for her stomach. She is more comfortable to slightly leaning forward. Evaluations have included CBC CMP amylase urinalysis urine an
[2023-04-23 09:46] LABS: Basophils % 0.5 % (0.1-2.0); Eosinophils # 0.5 K/mm3 (0.0-0.4); Eosinophils % 6.7 % (0.1-12.0); Hematocrit 48.4 % (37.0-47.0); Hemoglobin 15.5 g/dL (12.2-16.2); Lymphocytes # 2.1 K/mm3 (0.7-4.5); Lymphocytes % 26.3 % (10-50); Mean Corpuscular Hemoglobin 29.4 pg (27.0-31.2); Mean Corpuscular Volume 92.1 fl (81-99); Monocytes # 0.4 K/mm3 (0.1-1.0); Monocytes % 4.5 % (1.7-9.3); Neutrophils % 61.9 % (37.0-80.0); Platelet Count 263 K/mm3 (142-424); Red Blood Count 5.25 M/mm3 (4.20-5.40); Red Cell Distribution Width 12.9 % (11.5-17.5)
[2023-04-23 09:49] LABS: Alanine Aminotransferase 29 U/L (12-78); Albumin Level 4.1 g/dl (3.5-5.0); Albumin/Globulin Ratio 1.5 (1.1-1.8); Alkaline Phosphatase 65 U/L (38-126); Amylase 69 U/L (30-110); Anion Gap 11.4 mEq/L (5-15); Aspartate Amino Transferase 41 U/L (14-36); Bilirubin,Total 0.8 mg/dl (0.2-1.3); Blood Urea Nitrogen 14 mg/dl (7-17); Carbon Dioxide 25 mmol/L (22.0-30.0); Chloride 108 mmol/L (98-107); Creatinine Clearance Estimated 162 mL/min (50-200); Estimated Glomerular Filt Rate 82 ml/min (>60); GFR (African American) 99 ML/MIN (>60); Globulin 2.8 g/dL (1.3-3.2); Glucose 111 mg/dl (74-100); Potassium 4.4 mmoL/L (3.5-5.1); Sodium 140 mmol/L (136-145); Total Protein,Serum 6.9 g/dl (6.3-8.2)
[2023-04-23 09:52] LABS: HCG Qualitative, Serum Negative (Negative)
[2023-04-23 10:00] VITALS: PULSE 77; O2SAT 96
[2023-04-23 10:03] LABS: Troponin I < 0.01 ng/ml (0.00-0.034)
--- NOTE | 2023-04-23 11:12 | CT_ITS ---
FINAL REPORT TECHNIQUE: Axial images through the abdomen and pelvis were performed without contrast. This study was performed with techniques to keep radiation doses as low as reasonably achievable, (ALARA). Individualized dose reduction techniques using automated exposure control or adjustment of mA and/or kV according to the patient's size were employed. CLINICAL HISTORY: Abdominal pain. EPIGASTIC PAIN. FINDINGS: ABDOMEN: There is mild bibasilar atelectasis. The heart size is normal. Limited images of the liver are unremarkable. The gallbladder is moderately distended without evidence of stones. The spleen is normal. No adrenal mass is identified. Low-attenuation in the pancreas is favored to represent partial fatty infiltration. The aorta is normal in caliber. There is no significant free fluid or adenopathy. There is no nephrolithiasis. There is no hydronephrosis. PELVIS: The appendix is normal. The urinary bladder is unremarkable. There is no significant free fluid or adenopathy. IMPRESSION: Moderately distended gallbladder without evidence of stones. Low-attenuation in the pancreas is favored to represent partial fatty infiltration. Reviewed, Interpreted and Dictated by Micheal Bill III, MD Transcribed by Tali Haney Authenticated and [facility]
[2023-04-23 11:18] LABS: Microscopic, Urine URINE MICROSCOPIC (MICROSCOPIC)
[2023-04-23 11:20] LABS: Appearance,Urine SL CLOUDY (Clear); Bilirubin,Urine Negative (Negative); Blood, Urine Negative (Negative); Color,Urine YELLOW (Yellow); Glucose,Urine (UA) Negative (Negative); Ketones,Urine Negative (Negative); Leukocyte Esterase,Urine Negative (Negative); Nitrate,Urine Negative (Negative); PH,Urine 7.5 (5.0-8.5); Protein,Urine Negative (Negative)
[2023-04-23 11:30] VITALS: BP 101/59; PULSE 67; RESP 18; O2SAT 97
[2023-04-23 11:32] LABS: Amphetamine/Metha Screen,Urine Negative ng/ml (<1000)
[2023-04-23 11:33] LABS: Bacteria,Urine 2+ /lpf; Squamous Epithelial Cell,Urine Occasional #/hpf (0-5); WBC,Urine Occasional #/hpf (0-3)
[2023-04-23 11:34] LABS: Cannabinoid Screen,Urine Positive ng/ml (<50); Cocaine Screen,Urine Negative ng/ml (<300)
[2023-04-23 11:35] LABS: Methadone Screen,Urine Negative ng/ml (<300)
[2023-04-23 11:36] LABS: Opiate Screen,Urine Negative ng/ml (<300); Phencyclidine Screen,Urine Negative ng/ml (<25)
[2023-04-23 11:39] LABS: Barbiturates Screen,Urine Negative ng/ml (<200); Benzodiazepines Screen,Urine Negative ng/ml (<200)
[2023-04-23 12:00] VITALS: BP 102/62; PULSE 65; O2SAT 97
--- NOTE | 2023-04-23 12:26 | PC.NURSE ---
radiology states ct is locked pt updated we are awaiting results
[2023-04-23 12:31] VITALS: BP 94/57; PULSE 57; O2SAT 97
[2023-04-23 13:30] VITALS: BP 130/74; PULSE 62; RESP 20; TEMP 36.9; O2SAT 95
== END 2023-04-23 13:32 | disposition home or self-care (01) ==
PROVIDERS: Emergency Provider Emergency Medicine; PCP Physician Assistant
DX: R10.13 Epigastric pain (principal); F17.210 Nicotine dependence, cigarettes, uncomplicated
CPT/HCPCS: 74176; 80053; 80305; 81001; 82150; 84484; 84703; 85025; 87086; 96374; 96375; 99284; 99285

== ENCOUNTER 2023-08-22 15:14 | Emergency (ER) | payer OTHER, SELFPAY ==
[2023-08-22 15:17] VITALS: BP 129/84; PULSE 90; RESP 18; TEMP 36.7; O2SAT 98; BMI 36.6
--- NOTE | 2023-08-22 15:18 | HMH.EDGENADL ---
Discharge Plan Disposition Patient Disposition: Home, Self-Care Condition: Good Referrals Follow up/Referrals: Lynn Kapadia PA [Primary Care Provider] - See instructions Activity Restrictions/Add. Instructions Additional Instructions/Restrictions: Please follow-up with your orthopedic doctor if you continue to have this pain. Please return to the emergency department with any new or worsening symptoms. Clinical Impressions Clinical Impression: Acute ankle pain Qualifiers: Laterality: left Qualified Code(s): M25.572 - Pain in left ankle and joints of left foot Stand Alone Forms Stand Alone Forms: Work/School Release Instructions Patient Instructions: How To Perform RICE (Rest, Ice, Compress, Elevate) Discharge ED Provider: Danny Gandara Adult HPI General Chief complaint: Extremity Problem,Nontraumatic Stated complaint: LT leg pain Time Seen by Provider: 08/22/23 15:18 History of Present Illness HPI narrative: The patient presents with a chief complaint of increased pain and difficulty bearing weight on their previously surgically repaired foot. The pain began on Wednesday night after work, with a bruised sensation that has persisted and worsened. The patient denies any recent injury to the foot. The patient has a history of foot surgery two years ago, with plates and screws placed in the ankle and leg due to multiple fractures. They report chronic numbness in the foot since the surgery, but no tingling. The pain is primarily located in the ankle and behind it, with some pain near the heel. The patient experiences pain when moving the foot and has limited range of motion in the ankle. There is also swelling present. The patient has experienced similar symptoms in the past, typically when overworking the foot. They have hip issues from using crutches. The patient denies any fevers or chills and reports no other medical conditions. They have been managing the pain with Tylenol and ice packs and do not wear any special shoes or braces. Related Data Allergies Allergy/AdvReac Type Severity Reaction Status Date / Time erythromycin base Allergy Verified 05/13/23 09:18 Penicillins Allergy Verified 05/13/23 09:18 [facility] Disclaimer: The information contained in this section may have been updated after the patient was seen, as this information can be updated by other users. Medical History Abnormal uterine bleeding Surgical History History of ankle surgery History of surgery on lower extremity Hx of tonsillectomy Hx of tubal ligation Family History Other Diabetes Social History Smoking Status: Current every day smoker tobacco type: cigarettes packs per day: 1 alcohol intake: never substance use type: denies use current occupational status: other Travel in the last 8 weeks: None household members: other housing: house number of children: 4 current occupational exposures/hazards: No caffeine: Yes ROS Obtained: Yes Systems reviewed as appropriate & no additional complaints except as documented As per HPI Physical Exam General General appearance: alert and in no apparent distress Head Head exam: atraumatic and normocephalic Eye Eye exam: Present normal appearance Neck Neck exam: Present normal inspection Chest Chest inspection: Present normal inspection and symmetric chest wall rise Respiratory Respiratory exam: Present normal lung sounds bilaterally; Absent respiratory distress Cardiovascular Cardiovascular exam: Present regular rate and normal rhythm Abdominal Exam Abdominal exam: Present soft Extremities Exam Extremities exam: Present other (Tenderness to palpation throughout left ankle, range of motion chronically limited postoperatively, distally neurova
--- NOTE | 2023-08-22 15:28 | PC.NURSE ---
DR VALENZUELA AT BEDSIDE
--- NOTE | 2023-08-22 15:35 | XR_ITS ---
PROCEDURE INFORMATION: Exam: XR Left Ankle Exam date and time: 08/22/2023 3:40 PM Age: 37 years old Clinical indication: Pain; Prior surgery; Surgery date: 6+ months; Surgery type: Left ankle surgery 2 years ago. ; Additional info: Subacute ankle pain TECHNIQUE: Imaging protocol: Radiologic exam of the left ankle. Views: 3 or more views. COMPARISON: CR XR ANKLE LT MIN 3V 07/01/2021 1:07 PM FINDINGS: Bones/joints: Status post ORIF of the distal tibia and fibula. No acute fracture or dislocation. No evidence of acute hardware complication. Small plantar calcaneal enthesophyte. Soft tissues: Unremarkable. IMPRESSION: Status post ORIF of the distal tibia and fibula. No acute osseous abnormality or evidence of hardware complication.
[2023-08-22 15:45] VITALS: BP 109/77; PULSE 86; RESP 20; O2SAT 96
[2023-08-22 16:01] VITALS: BP 110/64; PULSE 84; RESP 20; O2SAT 96
[2023-08-22 16:30] VITALS: BP 96/66; PULSE 84; RESP 20; O2SAT 96
--- NOTE | 2023-08-22 16:44 | PC.NURSE ---
DR VALENZUELA AT BEDSIDE TO UPDATE PT
[2023-08-22 16:49] VITALS: BP 120/79; PULSE 88; RESP 18; TEMP 36.7; O2SAT 99
== END 2023-08-22 16:51 | disposition home or self-care (01) ==
PROVIDERS: Emergency Provider Emergency Medicine; PCP Physician Assistant
DX: M25.572 Pain in left ankle and joints of left foot (principal); F17.210 Nicotine dependence, cigarettes, uncomplicated; Z98.890 Other specified postprocedural states
CPT/HCPCS: 73610; 99283

== ENCOUNTER 2024-03-07 20:26 | Emergency (ER) | payer OTHER, SELFPAY ==
[2024-03-07 20:27] VITALS: BP 135/77; PULSE 87; RESP 18; TEMP 37.5; O2SAT 96; BMI 36.6
--- NOTE | 2024-03-07 20:32 | ED_ITS ---
<Statement entered by Alondra Jean DO - 03/07/24 22:38> I was consulted by the IAN, and we discussed the complexity of the problems being addressed. I approved the treatment and management plan for this patient's care in the emergency department, thus performing a substantive portion of the medical decision making. Alondra Jean DO Discharge Plan Disposition Patient Disposition: Home, Self-Care Condition: Good Prescriptions Prescriptions: New prednisone 50 mg tablet 50 mg PO DAILY 5 Days Qty: 5 0RF albuterol sulfate 90 mcg/actuation HFA aerosol inhaler 2 inh inhalation Q4H PRN (Reason: shortness of breath or wheezing) Qty: 8.5 0RF Referrals Follow up/Referrals: Lynn Kapadia PA [Primary Care Provider] - See instructions Activity Restrictions/Add. Instructions Additional Instructions/Restrictions: Follow-up with your PCP for referral to pulmonology. Return to ER for any worsening signs and symptoms including shortness of breath or wheezing that does not respond to your rescue inhaler, or as needed. Clinical Impressions Clinical Impression: Acute upper respiratory infection, Acute exacerbation of chronic obstructive pulmonary disease Stand Alone Forms Stand Alone Forms: Work/School Release Discharge ED Provider: Alondra Jean General Adult HPI General Chief complaint: Upper Respiratory Infection Stated complaint: weak, body aches, cough Time Seen by Provider: 03/07/24 20:31 History of Present Illness HPI narrative: Patient presents for evaluation of upper respiratory tract infection. Patient reports that her kids have been diagnosed with an upper respiratory tract infection and now she has similar symptoms however she reports cough back pain and fever. She denies cardiac chest pain hemoptysis hematochezia melena nausea vomiting diarrhea. Related Data Previous Rx's Medication Instructions Recorded albuterol sulfate 90 mcg/actuation 2 inh inhalation Q4H PRN shortness 03/07/24 aerosol inhaler of breath or wheezing #8.5 grams prednisone 50 mg tablet 50 mg PO DAILY 5 days #5 tabs 03/07/24 Allergies Allergy/AdvReac Type Severity Reaction Status Date / Time erythromycin base Allergy Verified 05/13/23 09:18 Penicillins Allergy Verified 05/13/23 09:18 [facility] Disclaimer: The information contained in this section may have been updated after the patient was seen, as this information can be updated by other users. Medical History Abnormal uterine bleeding Surgical History History of ankle surgery History of surgery on lower extremity Hx of tonsillectomy Hx of tubal ligation Family History Other Diabetes Social History Smoking Status: Current every day smoker tobacco type: cigarettes packs per day: 1 alcohol intake: never substance use type: denies use current occupational status: other Travel in the last 8 weeks: None household members: other housing: house number of children: 4 current occupational exposures/hazards: No caffeine: Yes ROS Obtained: Yes Systems reviewed as appropriate & no additional complaints except as documented Physical Exam General General appearance: alert and in no apparent distress Head Head exam: atraumatic and normal inspection Eye Eye exam: Present normal appearance ENT ENT exam: Present normal exam, mucous membranes moist, TM's normal bilaterally and other (Patient's posterior pharynx is erythematous without exudate) Neck Neck exam: Present normal inspection and lymphadenopathy Chest Chest inspection: Present normal inspection and symmetric chest wall rise Respiratory Respiratory exam: Present normal lung sounds bilaterally and wheezes (All 4 francisco and expiratory); Absent respiratory distress, stridor or accessory muscle use Cardiovascular Cardiovascular exam: Present regular rate, normal rhythm and normal heart sounds Extremities Exam Extremities exam: Present normal inspection Back Exam Back exam: Present normal inspection and full ROM Neurological Exam Neurological exam: Present alert and oriented X3 Skin Skin exam: Present warm, dry and normal color Medical Decision Making Medical Records Medical records reviewed: Yes I reviewed the patient's medical records. Steve Inquiry Pt receiving controlled substance: No Vital Signs: 03/07/24 20:27 03/07/24 22:06 Temperature 99.5 F 100.0 F H Temperature Source Oral Oral Pulse Rate 115 H Pulse Rate [Left] 87 Respiratory Rate 18 16 Blood Pressure 127/76 Blood Pressure [Right Arm] 135/77 Blood Pressure Mean [Right Arm] 96 Blood Pressure Source Automatic Cuff Blood Pressure Source [Right Arm] Automatic Cuff Blood Pressure Position [Right Arm] Sitting 02 Sat by Pulse Oximetry 96 Oxygen Delivery Method Room Air Room Air Lab Data Lab results reviewed: Yes I reviewed the patient's lab results. Lab Results 03/07/24 20:35: SARS-CoV-2 (PCR) Not detected, Influenza A Untype (PCR) Not detected, Influenza Type B (PCR) Not detected 03/07/24 21:23: WBC 6.7, RBC 5.01, Hgb 15.7, Hct 47.4 H, MCV 94.7, MCH 31.3 H, MCHC 33.0, RDW 13.5, Plt Count 194, MPV 8.1, Neut % (Auto) 67.9, Lymph % (Auto) 19.2, [place] % (Auto) 5.3, Eos % (Auto) 6.8, Baso % (Auto) 0.8, Neut # (Auto) 4.6, Lymph # (Auto) 1.3, [place] # (Auto) 0.4, Eos # (Auto) 0.5 H, Baso # (Auto) 0.1, Sodium 137, Potassium 4.3, Chloride 103, Carbon Dioxide 27, Anion Gap 11.3, BUN 9, Creatinine 0.80, Estimated Creat Clear 153, Estimated GFR 81, Est GFR ( Amer) 98, Glucose 109 H, Calcium 8.9, Magnesium 2.0, Troponin I < 0.01 03/07/24 21:23 03/07/24 21:23 Orders (Tests/Meds): ED MEDICATIONS Discontinued Medications Generic Name Dose Route Start Last Admin Trade Name Freq PRN Reason Stop Dose Admin Acetaminophen 1,000 mg 03/07/24 20:47 03/07/24 21:31 Acetaminophen 1,000mg/100ml Vial IV 03/07/24 20:48 1,000 mg ONCE ONE Administration Albuterol/Ipratropium 6 ml 03/07/24 20:47 03/07/24 21:31 Ipratropium/Albuterol 3 Ml Neb IH 03/07/24 20:48 6 ml ONCE ONE Administration Dexamethasone Sodium Phosphate 10 mg 03/07/24 20:47 03/07/24 21:30 Dexamethasone 4mg/Ml 5ml Mdv IV 03/07/24 20:48 10 mg ONCE ONE Administration Lactated Ringer's 1,000 mls @ 999 mls/hr 03/07/24 20:47 03/07/24 21:31 Lactated Ringer's 1000 Ml Bag IV 03/07/24 21:47 999 mls/hr .Q1H1M ONE Administration Ketorolac Tromethamine 15 mg 03/07/24 20:47 03/07/24 21:30 Ketorolac 30mg/Ml Vial IV 03/07/24 20:48 15 mg ONCE ONE Administration ORDERS Category Date Time Status Chest XR -- portable [XR chest portable] Stat Exams 03/07/24 20:47 Completed BMP [Basic Metabolic Panel] Stat Lab 03/07/24 21:23 Completed CBC w/Auto Diff [Complete Blood Count Auto Diff] Stat Lab 03/07/24 21:23 Completed Magnesium Stat Lab 03/07/24 21:23 Completed Rapid PCR Covid and Flu A/B Stat Lab 03/07/24 20:35 Completed Trop I [Troponin I] Stat Lab 03/07/24 21:23 Completed Medical Decision Narrative: In summary patient is a 38-year-old female who presents to the emergency department for evaluation of upper respiratory tract infections and cough fever. Patient is hemodynamically stable upon arrival, temperature is 99.5. Physical exam is remarkable for posterior pharynx erythema clear postnasal drip and expiratory wheezes in all 4 francisco mildly no respiratory distress.. Differential diagnosis includes viral versus bacterial upper respiratory tract infection, pneumonia, COPD exacerbation, asthma exacerbation etc. Initial workup will be conducted with hematologic labs, plain film chest x-ray twelve-lead EKG. Initial interventions include fluid bolus Toradol Tylenol Decadron breathing treatment. Initial workup reviewed by me shows that her hematologic labs are nonactionable and her plain film x-ray shows no acute processes via my informal interpretation. Upon repeat evaluation patient reports near complete resolution of her symptoms after breathing treatment. Given this patient is appropriate for discharge with prescriptions for steroids and metered-dose inhaler. Critical Care Critical Care Time Critical Care Time: No
--- NOTE | 2024-03-07 20:47 | XR_ITS ---
PROCEDURE INFORMATION: Exam: XR Chest Exam date and time: 03/07/2024 8:48 PM Age: 38 years old Clinical indication: Cough and wheezing; Additional info: Cough, wheezing TECHNIQUE: Imaging protocol: Radiologic exam of the chest. Views: 1 view. COMPARISON: CT ABDOMEN PELVIS WO CON 04/23/2023 11:17 AM FINDINGS: Lungs: Right basilar atelectasis. Left lung clear. Pleural spaces: Unremarkable. No pleural effusion. No pneumothorax. Heart/Mediastinum: Unremarkable. No cardiomegaly. Bones/joints: Unremarkable. IMPRESSION: Right basilar atelectasis.
[2024-03-07 20:54] LABS: Coronavirus 19, PCR Not Detected (NotDetected); Influenza A, PCR Not Detected (NotDetected); Influenza B, PCR Not Detected (NotDetected)
--- NOTE | 2024-03-07 21:07 | ECG_ITS ---
APPROVED REPORT Exam: Resting ECG HR:85 bpm ECG Measurements Heart Rate 85 AXES NH 144 P -1 QRSd 86 QRS 67 QT 337 T 47 QTc 379 Conclusion SINUS RHYTHM Electronically signed by : AZIZA MAZARIEGOS, 03/07/2024 22:42:39
[2024-03-07] MEDS: DEXAMETHASONE 4MG/ML 5ML MDV 10 MG IV (21:30)
[2024-03-07] MEDS: KETOROLAC 30MG/ML VIAL 15 MG IV (21:30)
[2024-03-07] MEDS: IPRATROPIUM/ALBUTEROL 3 ML NEB 6 ML IH (21:31)
[2024-03-07] MEDS: LACTATED RINGERS 1000ML 1,000 ML 999 ML IV (21:31)
[2024-03-07] MEDS: ACETAMINOPHEN 1,000MG/100ML VIAL 1000 MG IV (21:31)
[2024-03-07 21:34] LABS: Basophils # 0.1 K/mm3 (0-0.2); Basophils % 0.8 % (0.1-2.0); Eosinophils # 0.5 K/mm3 (0.0-0.4); Eosinophils % 6.8 % (0.1-12.0); Hematocrit 47.4 % (37.0-47.0); Hemoglobin 15.7 g/dL (12.2-16.2); Lymphocytes # 1.3 K/mm3 (0.7-4.5); Lymphocytes % 19.2 % (10-50); Mean Corpuscular Hemoglobin 31.3 pg (27.0-31.2); Mean Corpuscular Volume 94.7 fl (81-99); Mean Platelet Volume 8.1 fl (7.4-10.4); Monocytes # 0.4 K/mm3 (0.1-1.0); Monocytes % 5.3 % (1.7-9.3); Neutrophils # 4.6 K/mm3 (1.8-7.8); Neutrophils % 67.9 % (37.0-80.0); Platelet Count 194 K/mm3 (142-424); Red Blood Count 5.01 M/mm3 (4.20-5.40); Red Cell Distribution Width 13.5 % (11.5-17.5); White Blood Count 6.7 K/mm3 (4.8-10.8)
[2024-03-07 21:48] LABS: Blood Urea Nitrogen 9 mg/dl (7-17); Calcium 8.9 mg/dl (8.4-10.2); Carbon Dioxide 27 mmol/L (22.0-30.0); Chloride 103 mmol/L (98-107); Creatinine Clearance Estimated 153 mL/min (50-200); Estimated Glomerular Filt Rate 81 ml/min (>60); GFR (African American) 98 ML/MIN (>60); Glucose 109 mg/dl (74-100); Sodium 137 mmol/L (136-145)
[2024-03-07 22:03] LABS: Anion Gap 11.3 mEq/L (5-15); Potassium 4.3 mmoL/L (3.5-5.1); Troponin I < 0.01 ng/ml (0.00-0.034)
[2024-03-07 22:06] VITALS: BP 127/76; PULSE 115; RESP 16; TEMP 37.8; O2SAT 94
== END 2024-03-07 22:13 | disposition home or self-care (01) ==
PROVIDERS: Physician Assistant; Emergency Provider Emergency Medicine; PCP Physician Assistant
DX: J44.1 Chronic obstructive pulmonary disease with (acute) exacerbation (principal); R05.9 Cough, unspecified; R50.9 Fever, unspecified; J06.9 Acute upper respiratory infection, unspecified; M54.9 Dorsalgia, unspecified; F17.210 Nicotine dependence, cigarettes, uncomplicated
CPT/HCPCS: 71045; 80048; 83735; 84484; 85025; 87636; 93005; 96361; 96374; 96375; 99284; J0131

== ENCOUNTER 2024-03-21 14:19 | Emergency (ER) | payer OTHER, SELFPAY ==
[2024-03-21 14:40] VITALS: BP 138/87; PULSE 96; RESP 18; TEMP 36.9; O2SAT 98; BMI 36.6
--- NOTE | 2024-03-21 15:36 | ED_ITS ---
Discharge Plan Disposition Patient Disposition: Home, Self-Care Condition: Good Prescriptions Prescriptions: New cefdinir 300 mg capsule 300 mg PO Q12H 10 Days Qty: 20 0RF No Action albuterol sulfate 90 mcg/actuation HFA aerosol inhaler 2 inh inhalation Q4H PRN (Reason: shortness of breath or wheezing) Qty: 8.5 0RF Referrals Follow up/Referrals: Lynn Kapadia PA [Primary Care Provider] - See instructions Activity Restrictions/Add. Instructions Additional Instructions/Restrictions: Follow up with PCP. Clinical Impressions Clinical Impression: Bilateral acute otitis media Instructions Patient Instructions: DI for Middle Ear Infection-Adult Discharge ED Provider: Mireille Ballard [facility] [place] General Stated complaint: cough, congestion Mode of Arrival: Ambulatory Source of Information: Patient Limitations: No Limitations Time Seen by Provider: 03/21/24 15:25 Description of Symptoms (Recalled from Triage Doc. by RN): Pt's symptoms is left ear pain and cannot hear. HEENT Symptoms (Recalled from RN notes): Yes Resp Symptoms (Recalled from RN notes): No Skin Symptoms (Recalled from RN notes): No MS Symptoms (Recalled from RN notes): No Functional Status (Recalled from RN notes): n/a History of Present Illness Provider Complaint: Pt reports having a URI for the past 2 weeks and now has left ear pain and states that she can't hear out of it very well. She reports taking otc cough medication Related Data Previous Rx's Medication Instructions Recorded albuterol sulfate 90 mcg/actuation 2 inh inhalation Q4H PRN shortness 03/07/24 aerosol inhaler of breath or wheezing #8.5 grams cefdinir 300 mg capsule 300 mg PO Q12H 10 days #20 caps 03/21/24 Allergies Allergy/AdvReac Type Severity Reaction Status Date / Time erythromycin base Allergy Verified 03/21/24 14:56 Penicillins Allergy Verified 03/21/24 14:56 Worker's Comp Is this a Worker's Comp case?: No [facility] Disclaimer: The information contained in this section may have been updated after the patient was seen, as this information can be updated by other users. Medical History Abnormal uterine bleeding Surgical History History of ankle surgery History of surgery on lower extremity Hx of tonsillectomy Hx of tubal ligation Family History Other Diabetes Social History Smoking Status: Current every day smoker tobacco type: cigarettes packs per day: 1 alcohol intake: never substance use type: denies use current occupational status: other Travel in the last 8 weeks: None household members: other housing: house number of children: 4 current occupational exposures/hazards: No caffeine: Yes ROS Obtained: Yes All systems reviewed & no additional complaints except as documented Constitutional Constitutional: Reports system reviewed and no additional complaints, except as documented and Reports malaise Eyes Eyes: Reports system reviewed and no additional complaints, except as documented ENT Ears, Nose, Mouth, and Throat: Reports system reviewed and no additional complaints, except as documented, Reports otalgia, Reports nasal congestion and Reports nasal discharge Cardiovascular Cardiovascular: Reports system reviewed and no additional complaints, except as documented Respiratory Respiratory: Reports system reviewed and no additional complaints, except as documented and Reports non-productive cough Gastrointestinal Gastrointestingal: Reports system reviewed and no additional complaints, except as documented Genitourinary Female Genitourinary: Reports system reviewed and no additional complaints, except as documented Musculoskeletal Musculoskeletal: Reports system reviewed and no additional complaints, except as documented Integumentary/Breasts Skin/Breast: Reports system reviewed and no additional complaints, except as documented Neurologic Neurologic: Reports system reviewed and no additional complaints, except as documented Endocrine Endocrine: Reports system reviewed and no additional complaints, except as documented Hematologic/Lymphatic Henatologic/Lymphatic: Reports system reviewed and no additional complaints, except as documented Allergic/Immunologic Allergic/Immunologic: Reports system reviewed and no additional complaints, except as documented Physical Exam General General appearance: alert Comment: ill appearing Head Head exam: atraumatic and normocephalic Eye Eye exam: Present normal appearance Expanded ENT Exam External ear exam: Present normal external inspection TM/Canal exam: Bilateral TM: erythema, effusion, loss of landmarks and canal discharge (clear drainage) Nasal speculum exam: Bilateral: other (clear drainage) Mouth exam: Present normal external inspection Teeth exam: Present normal inspection Throat exam: Present normal inspection Neck Neck exam: Present normal inspection; Absent lymphadenopathy Chest Chest inspection: Present normal inspection and symmetric chest wall rise Respiratory Respiratory exam: Present other Expanded Respiratory Exam Location: Left: rhonchi, Right: rhonchi and Lower: rhonchi Cardiovascular Cardiovascular exam: Present regular rate and normal rhythm Abdominal Exam Abdominal exam: Present soft Extremities Exam Extremities exam: Present normal inspection Back Exam Back exam: Present normal inspection Neurological Exam Neurological exam: Present alert and oriented X3 Psychiatric Psychiatric exam: Present normal affect and normal mood Skin Skin exam: Present warm, dry and intact Lymphatic Lymphatic Findings: no adenopathy Medical Decision Making Steve Inquiry Pt receiving controlled substance: No Steve was queried for this patient: No Vital Signs: 03/21/24 14:40 Temperature 98.4 F Temperature Source Oral Pulse Rate [Right Radial] 96 H Respiratory Rate 18 Blood Pressure [Right Arm] 138/87 Blood Pressure Mean [Right Arm] 104 Blood Pressure Source [Right Arm] Automatic Cuff Blood Pressure Position [Right Arm] Sitting 02 Sat by Pulse Oximetry 98 Oxygen Delivery Method Room Air
[2024-03-21 15:59] VITALS: BP 138/87; PULSE 96; RESP 18; TEMP 36.9; O2SAT 96
== END 2024-03-21 15:59 | disposition home or self-care (01) ==
PROVIDERS: Emergency Provider Nurse Practitioner Family; PCP Physician Assistant
DX: H66.93 Otitis media, unspecified, bilateral (principal); H92.03 Otalgia, bilateral; F17.210 Nicotine dependence, cigarettes, uncomplicated
CPT/HCPCS: 99204; 99212; G0463